=== PATIENT | female | born 1965 | race African-American/Black ===

== ENCOUNTER 2022-01-30 12:24 | Emergency (ER) | payer BC, SELFPAY ==
[2022-01-30 12:32] VITALS: BP 133/86; PULSE 84; RESP 20; TEMP 36.3; O2SAT 100
--- NOTE | 2022-01-30 12:34 | ED.EYEPROB ---
HPI - Eye Problem General Chief complaint: Eye Problems Stated complaint: Eye Problem Time Seen by Provider: 01/30/22 12:40 Source: patient Mode of arrival: ambulatory Limitations: no limitations History of Present Illness HPI Narrative: 57-year-old female presented for complaint of pain, swelling, and redness to the right upper eyelid onset 3 days ago. She states it is only tender to the touch. She denies injury or associated discharge to the eye, FB sensation. Denies sinus congestion or pressure, headache, vision changes, dizziness. Used OTC pink eye relief drops. chief complaint: eye pain Related Data Home Medications Medication Instructions Recorded Confirmed amlodipine 5 mg PO DAILY 01/30/22 01/30/22 famotidine 20 mg PO DAILY 01/30/22 01/30/22 naproxen 500 mg PO DIRECTED PRN 01/30/22 01/30/22 oxybutynin chloride 5 mg PO DAILY 01/30/22 01/30/22 Allergies Allergy/AdvReac Type Severity Reaction Status Date / Time peanut Allergy Swelling Verified 01/30/22 12:39 Review of Systems Review of Systems: CONSTITUTIONAL: Denies body aches, fever, chills EYES:Endorses swelling, redness and pain to right eye; denies FB sensation, photophobia Denies visual changes ENT: Denies rhinorrhea, congestion, sore throat, or otalgia. CARDIOVASCULAR: Denies chest pain, palpitations RESPIRATORY: Denies cough or dyspnea. GASTROINTESTINAL: Denies abdominal pain, nausea, vomiting, or diarrhea. SKIN: Denies rash, itching, or wounds. MUSCULOSKELETAL: Denies back pain, joint pain, or myalgia. NEUROLOGIC: Denies headache, numbness, tingling, or weakness. PSYCH: Denies depression or anxiety. All systems reviewed & are unremarkable except as noted in HPI and below PMFSH Comments At time of signature, I have reviewed and agree with nursing past medical, surgical, social and family history unless otherwise noted. Please see nursing chart for further information. There is no relevant family history pertinent to the presenting complaint Exam Narrative: GENERAL: Well-appearing HEAD: Normocephalic, atraumatic. EYES: No conjunctival injection, Right upper eye lid swelling/redness c/w internal hordeolum. EOMI. Lid eversion showed no FB. Visual acuity 20/50 bilat. ENT: Mucous membranes pink and moist. No rhinorrhea. NECK: Normal AROM. Supple. No lymphadenopathy. CHEST: No respiratory distress. Clear to auscultation. HEART: Regular rate and rhythm. No murmur appreciated. ABDOMEN: Soft, nontender, nondistended MUSCULOSKELETAL: No bony tenderness. EXTREMITIES: Normal range of motion. SKIN: Warm, dry, no rash. Normal skin turgor. NEURO: No focal deficits. Alert and oriented x3. Steady gait PSYCH: Normal affect. Course Course Emergency Course: Patient is aware of diagnosis, understands and agrees to treatment plan. Anticipatory guidance given. Patient agrees to follow-up as directed and is aware of reasons to seek care at the emergency department. Portions of this record may have been created with voice recognition software Level of Care: Express Care Visit MDM - Eye Problem MDM Narrative Medical decision making narrative: visual acuity 20/50 bilat. Exam c/w internal hordeolum. She is advised on outpatient treatment and f/u. v/u. Differential Diagnosis Differential diagnosis: Likely corneal abrasion, conjunctivitis, acute iritis and other (terence britton) Discharge Plan Discharge Clinical Impression: Internal hordeolum of right eye Qualifiers: Eyelid: upper Qualified Code(s): H00.021 - Hordeolum internum right upper eyelid Patient Disposition: Home, Self-Care Condition: Stable Instructions: Sanjana Bonds (ED) Additional Instructions: Apply warm, moist compresses on the affected area frequently (for 5 to 10 minutes three to five times per day) in order to help with drainage. Massage and gentle wiping of the affected eyelid after the warm compress can also help with drainage. You can use baby shamp
== END 2022-01-30 13:01 | disposition home or self-care (01) ==
PROVIDERS: Emergency Provider Nurse Practitioner Family; PCP Family Medicine
DX: H00.021 Hordeolum internum right upper eyelid (principal); I10 Essential (primary) hypertension
CPT/HCPCS: 99213; G0463